=== PATIENT | female | born 1990 | race Caucasian/White ===

== ENCOUNTER 2018-09-11 01:20 | Emergency (ER) | payer OTHER ==
[2018-09-11] MEDS: ONDANSETRON (ODT) 4 MG TAB ODT (03:59)
[2018-09-11 04:03] LABS: URINE BLOOD (Dip) POC Negative (NEGATIVE); URINE GLUCOSE (Dip) POC Negative (NEGATIVE); URINE KETONES (Dip) POC 1+ (NEGATIVE); URINE LEUKOCYTE EST (Dip) POC Negative (NEGATIVE); URINE NITRITE (Dip) POC Negative (NEGATIVE); URINE TOTAL PROTEIN POC Negative (NEGATIVE)
== END 2018-09-11 04:47 | disposition home or self-care (01) ==
LOC: FTE 01:20
DX: K52.9 Noninfective gastroenteritis and colitis, unspecified (principal)
CPT/HCPCS: 81003; 81025; 99283